=== PATIENT | female | born 1940 ===

== ENCOUNTER 2024-04-04 13:07 | Outpatient (AMB) | payer MEDICARE, OTHER, SELFPAY ==
--- NOTE | 2024-04-04 13:27 | MHC.OFFVIS ---
Vital Signs 04/04/24 13:29 Height 5 ft 7 in Weight 220 lb 14.451 oz BMI 34.6 BP 126/60 Blood Pressure Location Lt brachial Position Sitting Pulse 74 Pulse Source Pulse Oximeter Pulse Oximetry (%) 97 Oxygen Delivery Method Room Air Intake Visit Reasons: Arthritis/CM APT Intake Note: Patient presents with arthritis today, Allergies No Known Allergies Allergy (Verified 04/04/24 13:31) HPI HPI Arthritis/CM APT: Details: He is feeling well. He has occasional stiffness and pain, controlled with taking Tylenol 1000 mg daily. He denies new joint swelling. He has been active with hunting recently but acknowledges his stamina is in the same as it used to be. [facility] Medical History (Updated 04/05/24 @ 11:20 by Filemon Bingham MD) Arthritis Surgical History (Updated 04/04/24 @ 13:35 by Devorah Beasley CMA) History of total bilateral knee replacement Family History (Updated 04/04/24 @ 13:37 by Devorah Beasley CMA) Paternal Grandfather Heart attack Father Lung tumor Social History (Updated 04/04/24 @ 13:40 by Devorah Beasley CMA) Alcohol intake: never Patient Tobacco Use Status: Never used Tobacco Review of Systems Const All systems reviewed & are unremarkable except as noted in HPI and below Physical Exam Vital Signs: Last Vital Signs Pulse 74 04/04/24 13:29 BP 126/60 04/04/24 13:29 Pulse Ox 97 04/04/24 13:29 Oxygen Delivery Method Room Air 04/04/24 13:29 BMI result Body Mass Index 34.6 Const Other: General: Comfortable CVS: RRR Respiratory: clear to auscultation bilaterally. Good respiratory effort Skin: No lesions seen MSK: No tenderness of any joints. No synovitis present. He has limited abduction 100 and 10 degrees bilateral shoulders. Good internal external rotation. Assessment & Plan Assessment & Plan (1) Pseudogout: Comment: RA type clinical diagnosis. Presenting with right wrist and PIP swelling progressing to bilateral small hand joints. He has calcification of TFC and scaphoid lunate space widening on x-ray. Colchicine 11/10/2021 to 05/13/2022 but discontinued due to diarrhea. Continues to have loose stool but has been modifying his diet with benefit. No synovitis on exam to suggest active disease. His joint pain is controlled with Tylenol. Code(s): M11.20 - Other chondrocalcinosis, unspecified site Category: Medical Plan: Continue Tylenol 1000 mg daily Monitor clinically Return to clinic in 6 months or sooner if needed. He we will call office if he develops new joint pain and swelling. Coding Level of Care Code Est Pt Level 3 (29568) Complex EM visit Add On G2211 Diagnoses Pseudogout M11.20
[2024-04-04 13:29] VITALS: BP 126/60; PULSE 74; O2SAT 97; BMI 34.6
== END 2024-04-04 14:07 | disposition home or self-care (01) ==
PROVIDERS: PCP Ophthalmology; Visit Provider Internal Medicine Rheumatology
DX: M11.20 Other chondrocalcinosis, unspecified site (principal)
CPT/HCPCS: 99213; G2211

== ENCOUNTER → 2024-04-04 13:07 | Outpatient (BNVA) | payer MEDICARE, OTHER, SELFPAY | PROVIDERS: PCP Ophthalmology; Visit Provider Internal Medicine Rheumatology | DX: M11.20 Other chondrocalcinosis, unspecified site (principal) | CPT/HCPCS: 99212 ==

== ENCOUNTER 2024-10-03 10:39 | Outpatient (AMB) | payer MEDICARE, OTHER, SELFPAY ==
--- NOTE | 2024-10-03 10:41 | A.OFFVIS_ITS ---
Vital Signs 10/03/24 10:42 Height 5 ft 7 in Weight 227 lb BMI 35.5 BP 110/86 Blood Pressure Location Lt brachial Position Sitting Pulse 61 Pulse Source Pulse Oximeter Pulse Oximetry (%) 98 Oxygen Delivery Method Room Air Intake Visit Reasons: Follow Up Intake Note: Patient presents with arthritis today. Allergies No Known Allergies Allergy (Verified 04/04/24 13:31) HPI HPI Follow Up: Details: He is doing well. Occasionally has hand pain or wrist pain that lasts less than a day. No new joint swelling. He is an avid [employer] and has hunted the most this spring and last fall. He noticed sometimes when he stands up and walks he feels imbalance. [facility] Medical History Arthritis Surgical History History of total bilateral knee replacement Family History Paternal Grandfather Heart attack Father Lung tumor Social History Alcohol intake: never Patient Tobacco Use Status: Never used Tobacco Physical Exam Vital Signs: Last Vital Signs Pulse 61 10/03/24 10:42 BP 110/86 10/03/24 10:42 Pulse Ox 98 10/03/24 10:42 Oxygen Delivery Method Room Air 10/03/24 10:42 BMI result Body Mass Index 35.5 Const Other: General: Comfortable CVS: RRR Respiratory: clear to auscultation bilaterally. Good respiratory effort Skin: No lesions seen MSK: No tenderness of any joints. No synovitis present. He has limited abduction 110 degrees bilateral shoulders. Normal external external rotation with limited full internal rotation Assessment & Plan Assessment & Plan (1) Pseudogout: Comment: RA type clinical diagnosis. Presenting with right wrist and PIP swelling progressing to bilateral small hand joints. He has calcification of TFC and scaphoid lunate space widening on x-ray. Colchicine 11/10/2021 to 05/13/2022 but discontinued due to diarrhea. No synovitis on exam to suggest active disease. His joint pain is controlled with Tylenol. We discussed conservative management with exercise to improve quadricep muscle strengthening to help with his balance. Code(s): M11.20 - Other chondrocalcinosis, unspecified site Category: Medical Plan: Continue Tylenol 1000 mg daily Monitor clinically Home exercise program. 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 We discussed importance about having a regular exercise routine. He will start biking. Return to clinic in 12 months or sooner if needed. He we will call office if he develops new joint pain and swelling. Coding Level of Care Code Est Pt Level 3 (39787) Complex EM visit Add On G2211 Diagnoses Pseudogout M11.20
[2024-10-03 10:42] VITALS: BP 110/86; PULSE 61; O2SAT 98; BMI 35.5
--- OUTSIDE RECORDS SUMMARY | 2024-10-03 12:28 | XMS_ITS | Clinical Summary ---
Author Organization [facility] Address [address] [place] [address] Care Team Providers Care Warehouse Person Name Role Phone Marc Villalta Primary Care Provider [phone] Allergies Active Allergy Reactions Criticality Noted Date Comments Spironolactone Breast enlargement 03/30/2023 Medications acetaminophen (TYLENOL) 325 mg tablet Take 650 mg by mouth every 6 hours as needed for pain. Active aspirin 81 mg EC tablet Take 81 mg by mouth once a day. Active atorvastatin (LIPITOR) 40 mg tablet Take 40 mg by mouth once a day. Active carvediloL (COREG) 12.5 mg tablet Take 12.5 mg by mouth 2 times a day with meals. Active docusate sodium (COLACE) 100 mg capsule Take 100 mg by mouth 2 times a day. Active sacubitriL-vals corrine (ENTRESTO) 97-103 mg Take 1 tablet by mouth every 12 hours. Active eplerenone (INSPRA) 25 mg tablet Take 25 mg by mouth once a day. Active furosemide (LASIX) 40 mg tablet Take 40 mg by mouth daily as needed. Active sitaGLIPtin phos-metformin (Janumet) 50-1,000 mg per tablet Take 1 tablet by mouth once a day. Active turmeric root extract 500 mg tablet Take 1 tablet by mouth once a day. Active ZINC ORAL Take 1 tablet by mouth once a day. Active ipratropium (ATROVENT) 0.03% nasal sprayIndication s:Non-allergic rhinitis Administer 2 sprays into each nostril 3 times a day. 30 mL 5 Active Additional Information Patient not taking.Reported on 06/05/2023 Active Problems Problem Noted Date Diagnosed Date Allergic rhinitis 03/30/2023 Adverse food reaction 03/30/2023 Penicillin allergy 03/30/2023 Social History Tobacco Use Types Packs/Day Years Used Date Smoking Tobacco: Never Smokeless Tobacco: Never Tobacco Cessation:Counseling Given: Not Answered Alcohol Use Standard Drinks/Week Comments Not Currently 0 (1 standard drink = 0.6 oz pur e alcohol) Sex and Gender Information Value Date Recorded Sex Assigned at Male 03/29/2023 6:35 PM EST Legal Sex Male 10:40 AM EST Gender Identity Male 03/29/2023 6:35 PM EST Sexual Orientation Straight 03/29/2023 6: 35 PM EST Last Filed Vital Signs Vital Sign Reading Time Taken Comments Blood Pressure 130/72 06/05/2023 12:58 PM EST Pulse 62 06/05/2023 12:58 PM EST Temperature - - Respiratory Rate 18 06/05/2023 12:58 PM EST Oxygen Saturation 94% 06/05/2023 12:58 PM EST Inhaled Oxygen Concentration - - Weight 102.1 kg (225 lb) 06/05/2023 12:58 PM EST Height - - Body Mass Index - - Plan of Treatment Health Maintenance Due Date Last Done Comments Medicare AWV 1941 DTaP,Tdap,and Td Vaccines (1 - Tdap) 1961 Pneumococcal Vaccine: 50+ Years (1 of 1 - PCV) 1989 Zoster Vaccines (1 of 2) 1989 RSV Vaccine (60+ years old and patients) (1 - 1-dose 75+ series) 2014 COVID-19 Vaccine (3 - 2023-2 5 season) 2023 06/22/2020, 2020 Alcohol/Substance Use Screening 04/24/2024 Depression Screening and Follow-Up 04/24/2024 Health Care Proxy Review 04/24/2024 Social Drivers of Health Annual Screening 04/24/2024 Influenza Vaccine (Season Ended) 2024 Hepatitis B Vaccines Aged Out No long er eligible based on patient's age to complete this topic Insurance MEDICARE [facility] Care Teams Warehouse Person Relationship Specialty Start Date End Date Marc Villalta [address] [place] [id number] PCP - General Internal Medicine 03/28/23
== END 2024-10-03 11:08 | disposition home or self-care (01) ==
LOC: HO.RHES 10:39
PROVIDERS: PCP Ophthalmology; Visit Provider Internal Medicine Rheumatology
DX: M11.20 Other chondrocalcinosis, unspecified site (principal)
CPT/HCPCS: 99213; G2211

== ENCOUNTER → 2024-10-03 10:39 | Outpatient (BNVA) | payer MEDICARE, OTHER, SELFPAY | PROVIDERS: PCP Ophthalmology; Visit Provider Internal Medicine Rheumatology | DX: M11.20 Other chondrocalcinosis, unspecified site (principal) | CPT/HCPCS: 99212 ==